=== PATIENT | female | born 1995 | race Caucasian/White ===

== ENCOUNTER 2016-12-26 20:32 | Emergency (ER) | payer OTHER ==
[~2016-12-26] VITALS: Ht 157.5 cm; Wt 59.1 kg
[2016-12-26 20:33] VITALS: BP 125/92; TEMP 97
[2016-12-26 21:14] LABS: BASO % 0.3 % (0.0-2.0); EOS % 0.5 % (0-4.0); GRAN # 6.6 (1.4-6.5); GRAN % 76.4 % (42.2-75.2); LYMPH # 1.4 (1.2-3.4); MEAN CELL VOLUME 96 fl (80.0-95.0); MEAN CORPUSCULAR HGB CONC 33 g/dl (33.0-37.0); MEAN PLATELET VOLUME 10.5 fl (7.4-10.4); MONO # 0.6 (0.1-0.6); MONO % 6.5 % (1.7-9.3); PLATELET COUNT 224 K/mm3 (130-400); REDCELL DISTRIBUTION WIDTH-CV 13.6 % (11.5-14.5); WHITE BLOOD COUNT 8.6 K/mm3 (4.8-10.8)
[2016-12-26 21:18] LABS: HEMATOCRIT 35.4 % (35.0-45.0); HEMOGLOBIN 11.8 g/dl (12.0-15.0); MEAN CORPUSCULAR HEMOGLOBIN 32 pg (26.0-32.0)
[2016-12-26 21:20] LABS: ADJUSTED CALCIUM 9.2 mg/dL (8.4-10.2); ALANINE AMINOTRANSFERASE 34 U/L (9-52); ALBUMIN 3.9 gm/dL (3.5-5.0); ALKALINE PHOSPHATASE 83 U/L (50-136); ANION GAP 11 mmol/L (7-16); BILIRUBIN,TOTAL 0.4 mg/dL (0.0-1.0); BLOOD UREA NITROGEN 12 mg/dL (7-17); CALCIUM 9.1 mg/dL (8.4-10.2); CARBON DIOXIDE 25 mmol/L (22-30); CHLORIDE 103 mmol/L (98-107); CREATININE, serum 0.53 mg/dL (0.52-1.25); GLUCOSE 59 mg/dL (74-106); POTASSIUM 3.7 mmol/L (3.4-5.0); SODIUM 139 mmol/L (137-145); TOTAL PROTEIN 6.6 gm/dL (6.4-8.2)
[2016-12-26] MEDS ORDERED: NOVOLOG 100U100 U/M1 SQ (21:20)
[2016-12-26 21:24] LABS: PH 6 (5-8); SQUAMOUS EPITHELIAL 0-2 /hpf; URINE APPEARANCE Clear; URINE BACTERIA None Seen /hpf; URINE BILIRUBIN Negative (NEGATIVE); URINE BLOOD Negative (NEGATIVE); URINE COLOR Yellow; URINE GLUCOSE 1+ (NEGATIVE); URINE KETONE Negative (NEGATIVE); URINE RBC 0-2 /hpf; URINE UROBILINOGEN Negative (NEGATIVE); URINE WBC 0-2 /hpf
[2016-12-27 00:16] VITALS: PULSE 92
== END 2016-12-27 00:16 | disposition home or self-care (01) ==
LOC: COL.ER 20:32
PROVIDERS: Family Medicine
DX: S06.0X9A Concussion with loss of consciousness of unspecified duration, initial encounter (principal); E10.649 Type 1 diabetes mellitus with hypoglycemia without coma; S01.511A Laceration without foreign body of lip, initial encounter; S01.81XA Laceration without foreign body of other part of head, initial encounter; M79.631 Pain in right forearm; Z79.4 Long term (current) use of insulin; S16.1XXA Strain of muscle, fascia and tendon at neck level, initial encounter; V48.5XXA Car driver injured in noncollision transport accident in traffic accident, initial encounter; Y92.410 Unspecified street and highway as the place of occurrence of the external cause

== ENCOUNTER 2017-01-01 14:06 | Emergency (ER) | payer OTHER ==
[~2017-01-01] VITALS: Ht 157.5 cm; Wt 56.8 kg
[~2017-01-01 14:06] MED LIST: NOVOLOG 100U100 U/M1 SQ
[2017-01-01 14:18] VITALS: TEMP 98.1
[2017-01-01] MEDS ORDERED: LANTUS100 U/ML SQ (14:54)
[2017-01-01 15:17] LABS: BASO % 0.4 % (0.0-2.0); EOS # 0.2 (0.0-0.7); EOS % 2.1 % (0-4.0); GRAN # 7.3 (1.4-6.5); HEMATOCRIT 42.6 % (35.0-45.0); HEMOGLOBIN 14.1 g/dl (12.0-15.0); LYMPH # 2.3 (1.2-3.4); MEAN CELL VOLUME 96 fl (80.0-95.0); MEAN CORPUSCULAR HEMOGLOBIN 32 pg (26.0-32.0); MEAN CORPUSCULAR HGB CONC 33 g/dl (33.0-37.0); MEAN PLATELET VOLUME 9.9 fl (7.4-10.4); MONO # 0.9 (0.1-0.6); PLATELET COUNT 331 K/mm3 (130-400); RED BLOOD COUNT 4.46 M/mm3 (4.10-5.30); REDCELL DISTRIBUTION WIDTH-CV 13.5 % (11.5-14.5); WHITE BLOOD COUNT 10.7 K/mm3 (4.8-10.8)
[2017-01-01 15:23] LABS: ADJUSTED CALCIUM 9.3 mg/dL (8.4-10.2); ALANINE AMINOTRANSFERASE 25 U/L (9-52); ALBUMIN 4.7 gm/dL (3.5-5.0); ALKALINE PHOSPHATASE 103 U/L (50-136); ANION GAP 12 mmol/L (7-16); BILIRUBIN,TOTAL 0.4 mg/dL (0.0-1.0); BLOOD UREA NITROGEN 15 mg/dL (7-17); CALCIUM 9.9 mg/dL (8.4-10.2); CARBON DIOXIDE 26 mmol/L (22-30); CHLORIDE 102 mmol/L (98-107); CREATININE, serum 0.49 mg/dL (0.52-1.25); MAGNESIUM 2.1 mg/dL (1.6-2.3); POTASSIUM 4.1 mmol/L (3.4-5.0); SODIUM 140 mmol/L (137-145); TOTAL PROTEIN 7.7 gm/dL (6.4-8.2)
[2017-01-01 15:27] LABS: GLUCOSE 21 mg/dL (74-106)
[2017-01-01 16:07] LABS: PH 7 (5-8); SQUAMOUS EPITHELIAL 0-2 /hpf; URINE APPEARANCE Clear; URINE BACTERIA None Seen /hpf; URINE BILIRUBIN Negative (NEGATIVE); URINE BLOOD Negative (NEGATIVE); URINE COLOR Straw; URINE GLUCOSE 1+ (NEGATIVE); URINE KETONE Negative (NEGATIVE); URINE RBC 0-2 /hpf; URINE UROBILINOGEN Negative (NEGATIVE); URINE WBC 0-2 /hpf
[2017-01-01 17:40] VITALS: BP 110/70; PULSE 87
== END 2017-01-01 17:40 | disposition home or self-care (01) ==
LOC: COL.ER 14:06
PROVIDERS: Emergency Medicine
DX: E10.649 Type 1 diabetes mellitus with hypoglycemia without coma (principal); F17.210 Nicotine dependence, cigarettes, uncomplicated; Z79.4 Long term (current) use of insulin
CPT/HCPCS: J7030

== ENCOUNTER 2017-03-21 13:09 | Emergency (ER) | payer SELFPAY ==
[~2017-03-21] VITALS: Ht 157.5 cm; Wt 56.8 kg
[~2017-03-21 13:09] MED LIST changes: +LANTUS100 U/ML SQ
[2017-03-21 13:14] VITALS: TEMP 98
[2017-03-21 13:50] LABS: BASO % 0.3 % (0.0-2.0); EOS % 0.3 % (0-4.0); GRAN # 9.7 (1.4-6.5); GRAN % 82.3 % (42.2-75.2); HEMATOCRIT 42.1 % (35.0-45.0); HEMOGLOBIN 13.6 g/dl (12.0-15.0); LYMPH # 1.3 (1.2-3.4); LYMPH % 11.4 % (20.0-51.0); MEAN CELL VOLUME 98 fl (80.0-95.0); MEAN CORPUSCULAR HEMOGLOBIN 32 pg (26.0-32.0); MEAN CORPUSCULAR HGB CONC 32 g/dl (33.0-37.0); MEAN PLATELET VOLUME 10.6 fl (7.4-10.4); MONO # 0.6 (0.1-0.6); MONO % 4.9 % (1.7-9.3); PLATELET COUNT 235 K/mm3 (130-400); RED BLOOD COUNT 4.28 M/mm3 (4.10-5.30); REDCELL DISTRIBUTION WIDTH-CV 13.4 % (11.5-14.5); WHITE BLOOD COUNT 11.8 K/mm3 (4.8-10.8)
[2017-03-21 14:48] LABS: PH 6 (5-8); URINE APPEARANCE Clear; URINE BACTERIA Rare /hpf; URINE BILIRUBIN Negative (NEGATIVE); URINE BLOOD Negative (NEGATIVE); URINE COLOR Yellow; URINE GLUCOSE 2+ (NEGATIVE); URINE KETONE Negative (NEGATIVE); URINE RBC 0-2 /hpf; URINE UROBILINOGEN Negative (NEGATIVE); URINE WBC 0-2 /hpf
[2017-03-21 14:53] LABS: ADJUSTED CALCIUM 9.4 mg/dL (8.4-10.2); ALBUMIN 3.4 gm/dL (3.5-5.0); BILIRUBIN,TOTAL 0.4 mg/dL (0.0-1.0); CALCIUM 8.9 mg/dL (8.4-10.2); CREATININE, serum 0.45 mg/dL (0.52-1.25); TOTAL PROTEIN 5.9 gm/dL (6.4-8.2)
[2017-03-21] MEDS ORDERED: ZOFRAN ODT4 MG PO (16:56)
[2017-03-21 17:03] VITALS: BP 130/82; PULSE 82
== END 2017-03-21 17:11 | disposition home or self-care (01) ==
LOC: COL.ER 13:09
PROVIDERS: Emergency Medicine
DX: E10.649 Type 1 diabetes mellitus with hypoglycemia without coma (principal); F17.210 Nicotine dependence, cigarettes, uncomplicated; Z98.51 Tubal ligation status
CPT/HCPCS: J7042

== ENCOUNTER 2017-04-21 03:07 | Inpatient (IN) | payer OTHER ==
[~2017-04-21] VITALS: Ht 157.5 cm; Wt 65.8 kg
[~2017-04-21 03:07] MED LIST changes: +ZOFRAN ODT4 MG PO
[2017-04-21 03:40] LABS: COLLECTION METHOD CATHETER
[2017-04-21 03:42] LABS: BASO # 0.1 (0.0-0.2); BASO % 0.7 % (0.0-2.0); EOS # 0.2 (0.0-0.7); EOS % 1.5 % (0-4.0); GRAN # 8.2 (1.4-6.5); GRAN % 70.3 % (42.2-75.2); HEMATOCRIT 39.2 % (35.0-45.0); HEMOGLOBIN 12.9 g/dl (12.0-15.0); LYMPH # 2.3 (1.2-3.4); LYMPH % 19.4 % (20.0-51.0); MEAN CELL VOLUME 96 fl (80.0-95.0); MEAN CORPUSCULAR HEMOGLOBIN 32 pg (26.0-32.0); MEAN CORPUSCULAR HGB CONC 33 g/dl (33.0-37.0); MEAN PLATELET VOLUME 9.9 fl (7.4-10.4); MONO # 0.9 (0.1-0.6); MONO % 7.7 % (1.7-9.3); PLATELET COUNT 282 K/mm3 (130-400); RED BLOOD COUNT 4.07 M/mm3 (4.10-5.30); WHITE BLOOD COUNT 11.6 K/mm3 (4.8-10.8)
[2017-04-21 03:46] LABS: MUCOUS Present /lpf; PH 6 (5-8); SQUAMOUS EPITHELIAL 0-2 /hpf; URINE APPEARANCE Clear; URINE BACTERIA None Seen /hpf; URINE BILIRUBIN Negative (NEGATIVE); URINE BLOOD 2+ (NEGATIVE); URINE COLOR Yellow; URINE GLUCOSE 3+ (NEGATIVE); URINE KETONE Negative (NEGATIVE); URINE LEUKOCYTE ESTERASE Negative (NEGATIVE); URINE PROTEIN(semi-quant) Negative (NEGATIVE); URINE UROBILINOGEN Negative (NEGATIVE); URINE WBC 0-2 /hpf
[2017-04-21 03:53] LABS: AMPHETAMINE URINE POSITIVE; BARBITURATES URINE NEGATIVE; BENZODIAZEPINES URINE NEGATIVE; BUPRENORPHINE URINE NEGATIVE; METHADONE URINE NEGATIVE; OPIATES URINE NEGATIVE; OXYCODONE URINE NEGATIVE; PHENCYCLIDINE URINE NEGATIVE; PROPOXYPHENE URINE NEGATIVE; THC CANNABINOIDS URINE POSITIVE; TRICYCLIC ANTIDEPRESS URINE NEGATIVE
[2017-04-21 03:57] LABS: ADJUSTED CALCIUM 8.9 mg/dL (8.4-10.2); ALANINE AMINOTRANSFERASE 26 U/L (9-52); ALBUMIN 4.3 gm/dL (3.5-5.0); ALKALINE PHOSPHATASE 136 U/L (50-136); ANION GAP 10 mmol/L (7-16); BILIRUBIN,TOTAL 0.6 mg/dL (0.0-1.0); BLOOD UREA NITROGEN 9 mg/dL (7-17); CALCIUM 9.1 mg/dL (8.4-10.2); CARBON DIOXIDE 26 mmol/L (22-30); CHLORIDE 104 mmol/L (98-107); CREATININE, serum 0.52 mg/dL (0.52-1.25); MAGNESIUM 1.8 mg/dL (1.6-2.3); PHOSPHOROUS 4.5 mg/dL (2.5-4.5); POTASSIUM 3.4 mmol/L (3.4-5.0); SODIUM 140 mmol/L (137-145); TOTAL PROTEIN 6.8 gm/dL (6.4-8.2)
[2017-04-21 04:00] LABS: ACETAMINOPHEN < 10 ug/mL (10-30); ALCOHOL(ethanol),MEDICAL < 10 mg/dL; GLUCOSE 38 mg/dL (74-106); SALICYLATE < 1.0 mg/dL
[2017-04-21] MEDS ORDERED: LANTUS100 U/ML SQ (05:27)
[2017-04-21] MEDS ORDERED: RITALIN 5MG5 MG/TAB PO (05:28)
[2017-04-21 10:48] VITALS: BP 98/43; BP 98/48; PULSE 94; TEMP 98
[2017-04-21 15:31] VITALS: BP 104/53; PULSE 74; TEMP 98.3
[2017-04-21 20:33] VITALS: BP 107/55; PULSE 85; TEMP 97.6
[2017-04-22 00:02] VITALS: BP 97/47; PULSE 66; TEMP 98.6
[2017-04-22 04:02] VITALS: BP 124/51; PULSE 64; TEMP 97.6
[2017-04-22 07:12] LABS: BASO # 0.1 (0.0-0.2); BASO % 0.7 % (0.0-2.0); EOS # 0.2 (0.0-0.7); GRAN # 4.5 (1.4-6.5); GRAN % 58.9 % (42.2-75.2); HEMOGLOBIN 12.4 g/dl (12.5-16.0); LYMPH # 2.3 (1.2-3.4); MEAN CELL VOLUME 98 fl (80.0-100.0); MEAN CORPUSCULAR HEMOGLOBIN 32 pg (27.0-31.0); MEAN CORPUSCULAR HGB CONC 33 g/dl (33.0-37.0); MEAN PLATELET VOLUME 10.7 fl (7.4-10.4); MONO # 0.5 (0.1-0.6); PLATELET COUNT 245 K/mm3 (130-400); RED BLOOD COUNT 3.87 M/mm3 (4.10-5.30); WHITE BLOOD COUNT 7.6 K/mm3 (4.8-10.8)
[2017-04-22 07:30] LABS: CALCIUM 8.6 mg/dL (8.4-10.2); CREATININE, serum 0.45 mg/dL (0.52-1.25); MAGNESIUM 1.7 mg/dL (1.6-2.3); POTASSIUM 4.4 mmol/L (3.4-5.0)
[2017-04-22 08:04] VITALS: BP 116/58; PULSE 66; TEMP 98
[2017-04-22 11:40] VITALS: BP 116/46; PULSE 104; TEMP 98.3
[2017-04-22 15:51] VITALS: BP 111/55; PULSE 72; TEMP 97.8
[2017-04-22 17:18] LABS: CALCIUM 9.3 mg/dL (8.4-10.2); CREATININE, serum 0.53 mg/dL (0.52-1.25); POTASSIUM 4.3 mmol/L (3.4-5.0)
[2017-04-22 20:14] VITALS: BP 115/56; PULSE 65; TEMP 98.5
[2017-04-23 07:11] LABS: CALCIUM 8.9 mg/dL (8.4-10.2); CREATININE, serum 0.52 mg/dL (0.52-1.25); MAGNESIUM 1.7 mg/dL (1.6-2.3); POTASSIUM 4.1 mmol/L (3.4-5.0)
[2017-04-23 08:40] VITALS: BP 153/73; PULSE 66; TEMP 98.3
[2017-04-23] MEDS ORDERED: LANTUS100 U/ML SQ (10:46)
[2017-04-23] MEDS ORDERED: NOVOLOG 100U100 U/M1 SQ (10:47)
[2017-04-23] MEDS ORDERED: NOVLOG SQ (10:52)
== END 2017-04-23 11:55 | disposition home or self-care (01) | DRG 638 ==
LOC: COL.ER 03:07 → MEDICAL 10:07
PROVIDERS: Emergency Medicine; Nurse Practitioner Family; Physician Assistant
DX: E10.649 Type 1 diabetes mellitus with hypoglycemia without coma (principal); E87.1 Hypo-osmolality and hyponatremia; J45.909 Unspecified asthma, uncomplicated; F17.210 Nicotine dependence, cigarettes, uncomplicated; F12.90 Cannabis use, unspecified, uncomplicated; Z79.4 Long term (current) use of insulin
CPT/HCPCS: 99232-AI; 99239; J1650; J1815; J7030; J7042

== ENCOUNTER 2017-07-10 19:14 | Emergency (ER) | payer SELFPAY ==
[~2017-07-10] VITALS: Ht 157.5 cm; Wt 61.7 kg
[~2017-07-10 19:14] MED LIST changes: +NOVLOG SQ; +RITALIN 5MG5 MG/TAB PO
[2017-07-10 19:25] VITALS: BP 145/88; PULSE 123; TEMP 99.6
[2017-07-10] MEDS ORDERED: AMOXICILLIN 8751 TAB PO (21:00)
== END 2017-07-10 22:45 | disposition home or self-care (01) ==
LOC: COL.ER 19:14
DX: S01.331A Puncture wound without foreign body of right ear, initial encounter (principal); S01.83XA Puncture wound without foreign body of other part of head, initial encounter; E10.649 Type 1 diabetes mellitus with hypoglycemia without coma; Z23 Encounter for immunization; W55.01XA Bitten by cat, initial encounter

== ENCOUNTER 2017-10-22 06:39 | Emergency (ER) | payer SELFPAY ==
[~2017-10-22] VITALS: Ht 162.6 cm; Wt 54.5 kg
[~2017-10-22 06:39] MED LIST changes: +AMOXICILLIN 8751 TAB PO
[2017-10-22 06:44] VITALS: TEMP 98
[2017-10-22 07:26] LABS: BASO # 0.1 (0.0-0.2); BASO % 0.3 % (0.0-2.0); EOS # 0.1 (0.0-0.7); EOS % 0.3 % (0-4.0); GRAN # 15.3 (1.4-6.5); GRAN % 87.2 % (42.2-75.2); HEMOGLOBIN 12.3 g/dl (12.5-16.0); LYMPH % 5.7 % (20.0-51.0); MEAN CELL VOLUME 98 fl (80.0-100.0); MEAN CORPUSCULAR HEMOGLOBIN 33 pg (27.0-31.0); MEAN CORPUSCULAR HGB CONC 33 g/dl (33.0-37.0); MEAN PLATELET VOLUME 9.4 fl (7.4-10.4); MONO % 5.6 % (1.7-9.3); PLATELET COUNT 259 K/mm3 (130-400); RED BLOOD COUNT 3.75 M/mm3 (4.10-5.30); REDCELL DISTRIBUTION WIDTH-CV 14.2 % (11.5-14.5)
[2017-10-22 07:32] LABS: HEMATOCRIT 36.9 % (37.0-47.0)
[2017-10-22 07:43] LABS: ALANINE AMINOTRANSFERASE 30 U/L (9-52); ALBUMIN 3.7 gm/dL (3.5-5.0); ALKALINE PHOSPHATASE 144 U/L (50-136); ANION GAP 11 mmol/L (7-16); AST,SGOT 29 U/L (15-37); BILIRUBIN,TOTAL 0.4 mg/dL (0.0-1.0); BLOOD UREA NITROGEN 13 mg/dL (7-17); CALCIUM 8.5 mg/dL (8.4-10.2); CARBON DIOXIDE 27 mmol/L (22-30); CHLORIDE 102 mmol/L (98-107); CREATININE, serum 0.47 mg/dL (0.52-1.25); GLUCOSE 187 mg/dL (74-106); SODIUM 139 mmol/L (137-145); TOTAL PROTEIN 6.7 gm/dL (6.4-8.2)
[2017-10-22 07:47] LABS: ACETAMINOPHEN < 10 ug/mL (10-30); ALCOHOL(ethanol),MEDICAL < 10 mg/dL
[2017-10-22 11:11] VITALS: BP 111/61; PULSE 65
== END 2017-10-22 11:12 | disposition home or self-care (01) ==
LOC: COL.ER 06:39
PROVIDERS: Emergency Medicine
DX: T38.3X1A Poisoning by insulin and oral hypoglycemic [antidiabetic] drugs, accidental (unintentional), initial encounter (principal); E10.649 Type 1 diabetes mellitus with hypoglycemia without coma; F15.90 Other stimulant use, unspecified, uncomplicated; Z79.4 Long term (current) use of insulin

== ENCOUNTER 2017-11-21 07:11 | Emergency (ER) | payer SELFPAY ==
[~2017-11-21] VITALS: Ht 157.5 cm; Wt 54.5 kg
[2017-11-21 07:19] VITALS: BP 133/80; PULSE 105; TEMP 98.6
== END 2017-11-21 09:08 | disposition home or self-care (01) ==
LOC: COL.ER 07:11
DX: S62.617A Displaced fracture of proximal phalanx of left little finger, initial encounter for closed fracture (principal); E11.9 Type 2 diabetes mellitus without complications; F17.210 Nicotine dependence, cigarettes, uncomplicated; Z79.4 Long term (current) use of insulin; W22.8XXA Striking against or struck by other objects, initial encounter; Y93.39 Activity, other involving climbing, rappelling and jumping off; Y92.410 Unspecified street and highway as the place of occurrence of the external cause
CPT/HCPCS: Q4021

== ENCOUNTER 2018-01-03 20:55 | Inpatient (IN) | payer SELFPAY ==
[~2018-01-03] VITALS: Ht 170.2 cm; Wt 59.4 kg
[2018-01-03 21:16] LABS: ARTERIAL BLD GAS O2 SATURATION 97.1 % (92-100); ARTERIAL BLD GAS TCO2 CT 2.2; ARTERIAL BLOOD GAS HCO3 1.8 meq/L (22-26)
[2018-01-03 21:17] LABS: ARTERIAL BLOOD GAS PCO2 10.1 mmHg (35-45); ARTERIAL BLOOD GAS PO2 137.9 mmHg (80-100); ARTERIAL BLOOD GAS pH 6.88 (7.35-7.45)
[2018-01-03 21:45] LABS: COLLECTION METHOD CATHETER
[2018-01-03 21:48] LABS: HEMATOCRIT 41.8 % (37.0-47.0); HEMOGLOBIN 12.4 g/dl (12.5-16.0); MEAN CELL VOLUME 112 fl (80.0-100.0); MEAN CORPUSCULAR HEMOGLOBIN 33 pg (27.0-31.0); MEAN CORPUSCULAR HGB CONC 30 g/dl (33.0-37.0); MEAN PLATELET VOLUME 10.5 fl (7.4-10.4); PLATELET COUNT 419 K/mm3 (130-400); RED BLOOD COUNT 3.74 M/mm3 (4.10-5.30); REDCELL DISTRIBUTION WIDTH-CV 14.5 % (11.5-14.5)
[2018-01-03 21:59] LABS: PH 5 (5-8); SQUAMOUS EPITHELIAL 0-2 /hpf; URINE APPEARANCE Hazy; URINE BACTERIA None Seen /hpf; URINE BILIRUBIN Negative (NEGATIVE); URINE BLOOD Negative (NEGATIVE); URINE COLOR Yellow; URINE GLUCOSE 3+ (NEGATIVE); URINE KETONE 2+ (NEGATIVE); URINE LEUKOCYTE ESTERASE Negative (NEGATIVE); URINE NITRATE Negative (NEGATIVE); URINE PROTEIN(semi-quant) 1+ (NEGATIVE); URINE RBC 0-2 /hpf; URINE UROBILINOGEN Negative (NEGATIVE)
[2018-01-03 22:02] LABS: ALANINE AMINOTRANSFERASE 49 U/L (9-52); ALBUMIN 4.1 gm/dL (3.5-5.0); AST,SGOT 54 U/L (15-37); BILIRUBIN,TOTAL 0.4 mg/dL (0.0-1.0); BLOOD UREA NITROGEN 13 mg/dL (7-17); CALCIUM 8.1 mg/dL (8.4-10.2); CARBON DIOXIDE < 5 mmol/L (22-30); CHLORIDE 102 mmol/L (98-107); CREATININE, serum 1.02 mg/dL (0.52-1.25); POTASSIUM 6.4 mmol/L (3.4-5.0); SODIUM 137 mmol/L (137-145); TOTAL PROTEIN 7.1 gm/dL (6.4-8.2)
[2018-01-03 22:04] LABS: BAND 12 % (0-10); LYMPHOCYTE 32 % (20.0-51.0); NEUTROPHILS 51 % (42.0-75.2)
[2018-01-03 22:05] LABS: ANISOCYTOSIS 1+; PLATELET ESTIMATE NORMAL (NORMAL)
[2018-01-03 22:06] LABS: TRICYCLIC ANTIDEPRESS URINE NEGATIVE
[2018-01-03 22:14] LABS: ALCOHOL(ethanol),MEDICAL < 10 mg/dL; GLUCOSE 847 mg/dL (74-106); LIPASE 41 U/L (23-300)
[2018-01-03 22:23] LABS: ALKALINE PHOSPHATASE 331 U/L (50-136)
[2018-01-03 22:58] LABS: ARTERIAL BLD GAS O2 SATURATION 97.5 % (92-100); ARTERIAL BLD GAS TCO2 CT 2.4; ARTERIAL BLOOD GAS BASE EXCESS -29.8 (-2-2); ARTERIAL BLOOD GAS PCO2 11.2 mmHg (35-45); ARTERIAL BLOOD GAS PO2 141.1 mmHg (80-100); ARTERIAL BLOOD GAS pH 6.88 (7.35-7.45)
[2018-01-03] MEDS ORDERED: NOVOLOG FLEX100 U/ML SQ (23:05)
[2018-01-03] MEDS ORDERED: PAXIL 30MG30 MG PO (23:06)
[2018-01-03] MEDS ORDERED: LEVEMIR FLEX100 U/ML SQ (23:06)
[2018-01-03 23:37] LABS: CALCIUM 7.1 mg/dL (8.4-10.2); CREATININE, serum 0.72 mg/dL (0.52-1.25); POTASSIUM 4.3 mmol/L (3.4-5.0)
[2018-01-04] VITALS (757 sets, daily range): BP systolic 116–155; BP diastolic 64–89; PULSE 72–111; TEMP 97.4–100.6; O2SAT 93–100
[2018-01-04] MEDS ORDERED: AMOXICILLIN 8751 TAB PO (00:03)
[2018-01-04 00:09] LABS: HIV 1/2 Antibodies Non-Reactive; HIV-1p24 Antigen Non-Reactive
[2018-01-04 01:29] LABS: CALCIUM 7.3 mg/dL (8.4-10.2); CREATININE, serum 0.58 mg/dL (0.52-1.25); MAGNESIUM 1.9 mg/dL (1.6-2.3); PHOSPHOROUS 2.1 mg/dL (2.5-4.5); POTASSIUM 5.1 mmol/L (3.4-5.0)
[2018-01-04 03:57] LABS: CALCIUM 7.7 mg/dL (8.4-10.2); CREATININE, serum 0.58 mg/dL (0.52-1.25); POTASSIUM 4.4 mmol/L (3.4-5.0)
[2018-01-04 05:07] LABS: ARTERIAL BLOOD GAS BASE EXCESS -18.7 (-2-2); ARTERIAL BLOOD GAS HCO3 6.5 meq/L (22-26); ARTERIAL BLOOD GAS PO2 116.1 mmHg (80-100); ARTERIAL BLOOD GAS pH 7.23 (7.35-7.45)
[2018-01-04 05:08] LABS: ARTERIAL BLOOD GAS PCO2 15.8 mmHg (35-45)
[2018-01-04 06:06] LABS: MEAN CORPUSCULAR HEMOGLOBIN 33 pg (27.0-31.0); MEAN CORPUSCULAR HGB CONC 32 g/dl (33.0-37.0); MEAN PLATELET VOLUME 10.1 fl (7.4-10.4); RED BLOOD COUNT 3.34 M/mm3 (4.10-5.30); REDCELL DISTRIBUTION WIDTH-CV 14.1 % (11.5-14.5)
[2018-01-04 06:17] LABS: HEMATOCRIT 34.8 % (37.0-47.0); MEAN CELL VOLUME 104 fl (80.0-100.0); PLATELET COUNT 267 K/mm3 (130-400)
[2018-01-04 06:23] LABS: CALCIUM 7.9 mg/dL (8.4-10.2); CREATININE, serum 0.51 mg/dL (0.52-1.25); POTASSIUM 4.3 mmol/L (3.4-5.0)
[2018-01-04 07:03] LABS: ALANINE AMINOTRANSFERASE 48 U/L (9-52); ALBUMIN 3.6 gm/dL (3.5-5.0); ALKALINE PHOSPHATASE 284 U/L (50-136); AST,SGOT 43 U/L (15-37); BILIRUBIN,TOTAL 0.3 mg/dL (0.0-1.0); TOTAL PROTEIN 6.3 gm/dL (6.4-8.2)
[2018-01-04 07:04] LABS: SALICYLATE < 1.0 mg/dL
[2018-01-04 07:23] LABS: BAND 11 % (0-10); LYMPHOCYTE 32 % (20.0-51.0); METAMYELOCYTE 1 % (0-0); NEUTROPHILS 53 % (42.0-75.2); PLATELET ESTIMATE NORMAL (NORMAL)
[2018-01-04 07:24] LABS: TOXIC GRANULATION PRESENT
[2018-01-04 07:25] LABS: BILIRUBIN,DIRECT 0.3 mg/dL (0.0-0.4)
[2018-01-04 08:04] LABS: CALCIUM 7.5 mg/dL (8.4-10.2); CREATININE, serum 0.52 mg/dL (0.52-1.25); POTASSIUM 3.5 mmol/L (3.4-5.0)
[2018-01-04 09:25] LABS: CALCIUM 7.7 mg/dL (8.4-10.2); CREATININE, serum 0.49 mg/dL (0.52-1.25); POTASSIUM 4.1 mmol/L (3.4-5.0)
[2018-01-04 11:56] LABS: CALCIUM 7.8 mg/dL (8.4-10.2); CREATININE, serum 0.46 mg/dL (0.52-1.25); POTASSIUM 3.8 mmol/L (3.4-5.0)
[2018-01-04 12:09] LABS: ARTERIAL BLD GAS O2 SATURATION 97.5 % (92-100); ARTERIAL BLOOD GAS BASE EXCESS -12.5 (-2-2); ARTERIAL BLOOD GAS HCO3 11.4 meq/L (22-26); ARTERIAL BLOOD GAS PO2 98.6 mmHg (80-100); ARTERIAL BLOOD GAS pH 7.34 (7.35-7.45)
[2018-01-04 12:10] LABS: ARTERIAL BLOOD GAS PCO2 21.5 mmHg (35-45)
[2018-01-04 12:16] LABS: CREATINE KINASE 35 U/L (30-135)
[2018-01-04 12:25] LABS: TROPONIN-I < 0.012 ng/mL (0.000-0.034)
[2018-01-04 13:46] LABS: CALCIUM 7.5 mg/dL (8.4-10.2); CREATININE, serum 0.43 mg/dL (0.52-1.25); POTASSIUM 3.6 mmol/L (3.4-5.0)
[2018-01-04 15:17] LABS: HEPATITIS B SURFACE ANTIGEN Negative (()); HEPATITIS C VIRUS ANTIBODY Negative (())
[2018-01-04 15:35] LABS: CALCIUM 7.7 mg/dL (8.4-10.2); CREATININE, serum 0.42 mg/dL (0.52-1.25); POTASSIUM 3.5 mmol/L (3.4-5.0)
[2018-01-04 17:22] LABS: CALCIUM 8.1 mg/dL (8.4-10.2); CREATININE, serum 0.38 mg/dL (0.52-1.25); POTASSIUM 3.8 mmol/L (3.4-5.0)
[2018-01-04 19:23] LABS: CALCIUM 7.8 mg/dL (8.4-10.2); CREATININE, serum 0.38 mg/dL (0.52-1.25); POTASSIUM 3.6 mmol/L (3.4-5.0)
[2018-01-04 21:10] LABS: CALCIUM 7.9 mg/dL (8.4-10.2); CREATININE, serum 0.38 mg/dL (0.52-1.25); POTASSIUM 3.3 mmol/L (3.4-5.0)
[2018-01-04 23:16] LABS: CREATININE, serum 0.4 mg/dL (0.52-1.25); POTASSIUM 3.1 mmol/L (3.4-5.0)
[2018-01-04 23:47] LABS: MAGNESIUM 1.7 mg/dL (1.6-2.3); PHOSPHOROUS 0.8 mg/dL (2.5-4.5)
[2018-01-05] VITALS (699 sets, daily range): BP systolic 128–148; BP diastolic 69–97; PULSE 61–110; TEMP 98–99.3; O2SAT 87–100
[2018-01-05 01:26] LABS: CREATININE, serum 0.39 mg/dL (0.52-1.25); POTASSIUM 3.1 mmol/L (3.4-5.0)
[2018-01-05 03:12] LABS: ANION GAP 14 mmol/L (7-16); CALCIUM 7.9 mg/dL (8.4-10.2); CARBON DIOXIDE 15 mmol/L (22-30); CHLORIDE 113 mmol/L (98-107); CREATININE, serum 0.38 mg/dL (0.52-1.25); GLUCOSE 124 mg/dL (74-106); POTASSIUM 3.6 mmol/L (3.4-5.0); SODIUM 142 mmol/L (137-145)
[2018-01-05 03:22] LABS: BLOOD UREA NITROGEN < 2 mg/dL (7-17)
[2018-01-05 05:42] LABS: BASO % 0.2 % (0.0-2.0); EOS # 0.1 (0.0-0.7); EOS % 1.1 % (0-4.0); GRAN # 5.2 (1.4-6.5); GRAN % 58.8 % (42.2-75.2); LYMPH # 2.4 (1.2-3.4); LYMPH % 26.6 % (20.0-51.0); MEAN CELL VOLUME 100 fl (80.0-100.0); MEAN CORPUSCULAR HGB CONC 33 g/dl (33.0-37.0); MEAN PLATELET VOLUME 9.7 fl (7.4-10.4); MONO # 1.1 (0.1-0.6); MONO % 12.7 % (1.7-9.3); PLATELET COUNT 190 K/mm3 (130-400); RED BLOOD COUNT 3.01 M/mm3 (4.10-5.30); REDCELL DISTRIBUTION WIDTH-CV 14.7 % (11.5-14.5)
[2018-01-05 05:51] LABS: HEMATOCRIT 30.2 % (37.0-47.0); HEMOGLOBIN 9.9 g/dl (12.5-16.0); MEAN CORPUSCULAR HEMOGLOBIN 33 pg (27.0-31.0)
[2018-01-05 05:52] LABS: ALBUMIN 2.8 gm/dL (3.5-5.0); BILIRUBIN,TOTAL 0.1 mg/dL (0.0-1.0); CALCIUM 7.6 mg/dL (8.4-10.2); CREATININE, serum 0.38 mg/dL (0.52-1.25); MAGNESIUM 2.7 mg/dL (1.6-2.3); PHOSPHOROUS 2.5 mg/dL (2.5-4.5); POTASSIUM 3.7 mmol/L (3.4-5.0); TOTAL PROTEIN 5.4 gm/dL (6.4-8.2)
[2018-01-05 07:51] LABS: ANION GAP 9 mmol/L (7-16); CALCIUM 7.1 mg/dL (8.4-10.2); CARBON DIOXIDE 18 mmol/L (22-30); CHLORIDE 112 mmol/L (98-107); CREATININE, serum 0.31 mg/dL (0.52-1.25); GLUCOSE 95 mg/dL (74-106); POTASSIUM 4.1 mmol/L (3.4-5.0); SODIUM 139 mmol/L (137-145)
[2018-01-05 07:54] LABS: BLOOD UREA NITROGEN < 2 mg/dL (7-17)
[2018-01-05 09:33] LABS: ANION GAP 12 mmol/L (7-16); BLOOD UREA NITROGEN < 2 mg/dL (7-17); CALCIUM 6.7 mg/dL (8.4-10.2); CARBON DIOXIDE 15 mmol/L (22-30); CHLORIDE 111 mmol/L (98-107); GLUCOSE 182 mg/dL (74-106); POTASSIUM 3.2 mmol/L (3.4-5.0); SODIUM 138 mmol/L (137-145)
[2018-01-05 11:26] LABS: ANION GAP 12 mmol/L (7-16); CALCIUM 6.9 mg/dL (8.4-10.2); CARBON DIOXIDE 16 mmol/L (22-30); CHLORIDE 111 mmol/L (98-107); CREATININE, serum 0.29 mg/dL (0.52-1.25); GLUCOSE 126 mg/dL (74-106); POTASSIUM 3.8 mmol/L (3.4-5.0); SODIUM 138 mmol/L (137-145)
[2018-01-05 11:35] LABS: BLOOD UREA NITROGEN < 2 mg/dL (7-17)
[2018-01-05 13:35] LABS: ANION GAP 13 mmol/L (7-16); CALCIUM 6.8 mg/dL (8.4-10.2); CARBON DIOXIDE 15 mmol/L (22-30); CHLORIDE 110 mmol/L (98-107); GLUCOSE 133 mg/dL (74-106); POTASSIUM 3.8 mmol/L (3.4-5.0); SODIUM 138 mmol/L (137-145)
[2018-01-05 13:44] LABS: BLOOD UREA NITROGEN < 2 mg/dL (7-17)
[2018-01-05 15:26] LABS: ANION GAP 13 mmol/L (7-16); CARBON DIOXIDE 16 mmol/L (22-30); CHLORIDE 109 mmol/L (98-107); GLUCOSE 146 mg/dL (74-106); POTASSIUM 4.1 mmol/L (3.4-5.0); SODIUM 137 mmol/L (137-145)
[2018-01-05 15:29] LABS: BLOOD UREA NITROGEN < 2 mg/dL (7-17)
[2018-01-07 14:35] LABS: ACETONE XXX
== END 2018-01-05 20:16 | disposition short-term general hospital (02) | DRG 637 ==
LOC: COL.ER 20:55 → ICU 23:39
PROVIDERS: Emergency Medicine; Family Medicine; Internal Medicine; Internal Medicine Pulmonary Disease; Nurse Practitioner Family
PROC: 02HV33Z Insertion of Infusion Device into Superior Vena Cava, Percutaneous Approach (ICD-10-PCS; principal; 2018-01-04)
DX: E10.10 Type 1 diabetes mellitus with ketoacidosis without coma (principal); G93.41 Metabolic encephalopathy; F15.10 Other stimulant abuse, uncomplicated; F12.10 Cannabis abuse, uncomplicated; E87.5 Hyperkalemia; E83.39 Other disorders of phosphorus metabolism; J45.909 Unspecified asthma, uncomplicated; D64.9 Anemia, unspecified; D72.829 Elevated white blood cell count, unspecified; R50.9 Fever, unspecified; F17.210 Nicotine dependence, cigarettes, uncomplicated; Z79.4 Long term (current) use of insulin
CPT/HCPCS: 99223-AI; 99239; J0610; J0696; J1650; J1815; J1956; J2405; J2550; J3411; J3475; J3480; J7030; J7050; Q9967

== ENCOUNTER 2018-02-16 18:08 | Inpatient (IN) | payer SELFPAY ==
[~2018-02-16] VITALS: Ht 157.5 cm; Wt 62.0 kg
[~2018-02-16 18:08] MED LIST changes: +LEVEMIR FLEX100 U/ML SQ; +NOVOLOG FLEX100 U/ML SQ; +PAXIL 30MG30 MG PO
[2018-02-16 18:44] LABS: BASO # 0.1 (0.0-0.2); BASO % 0.9 % (0.0-2.0); EOS # 0.1 (0.0-0.7); EOS % 1.2 % (0-4.0); GRAN % 69.5 % (42.2-75.2); HEMATOCRIT 40.5 % (37.0-47.0); HEMOGLOBIN 12.6 g/dl (12.5-16.0); LYMPH % 22.9 % (20.0-51.0); MEAN CELL VOLUME 98 fl (80.0-100.0); MEAN CORPUSCULAR HEMOGLOBIN 30 pg (27.0-31.0); MEAN CORPUSCULAR HGB CONC 31 g/dl (33.0-37.0); MEAN PLATELET VOLUME 10.4 fl (7.4-10.4); MONO # 0.5 (0.1-0.6); MONO % 5.2 % (1.7-9.3); PLATELET COUNT 293 K/mm3 (130-400); RED BLOOD COUNT 4.15 M/mm3 (4.10-5.30); REDCELL DISTRIBUTION WIDTH-CV 13.9 % (11.5-14.5)
[2018-02-16 18:50] LABS: ACETONE,SERUM MODERATE; ALANINE AMINOTRANSFERASE 37 U/L (9-52); ALBUMIN 4.6 gm/dL (3.5-5.0); ALKALINE PHOSPHATASE 187 U/L (50-136); ANION GAP 27 mmol/L (7-16); AST,SGOT 36 U/L (15-37); BILIRUBIN,TOTAL 0.8 mg/dL (0.0-1.0); BLOOD UREA NITROGEN 8 mg/dL (7-17); CALCIUM 8.9 mg/dL (8.4-10.2); CHLORIDE 97 mmol/L (98-107); CREATININE, serum 0.69 mg/dL (0.52-1.25); LIPASE 33 U/L (23-300); MAGNESIUM 1.7 mg/dL (1.6-2.3); POTASSIUM 4.6 mmol/L (3.4-5.0); SODIUM 131 mmol/L (137-145); TOTAL PROTEIN 7.6 gm/dL (6.4-8.2)
[2018-02-16 18:52] LABS: COLLECTION METHOD CLEAN CATCH
[2018-02-16 18:53] LABS: ALCOHOL(ethanol),MEDICAL < 10 mg/dL
[2018-02-16 18:54] LABS: CARBON DIOXIDE 7 mmol/L (22-30); GLUCOSE 576 mg/dL (74-106)
[2018-02-16 18:58] LABS: MUCOUS Present /lpf; PH 5 (5-8); SQUAMOUS EPITHELIAL 0-2 /hpf; URINE APPEARANCE Hazy; URINE BACTERIA Rare /hpf; URINE BILIRUBIN Negative (NEGATIVE); URINE BLOOD Negative (NEGATIVE); URINE COLOR Straw; URINE GLUCOSE 3+ (NEGATIVE); URINE KETONE 2+ (NEGATIVE); URINE LEUKOCYTE ESTERASE Negative (NEGATIVE); URINE NITRATE Negative (NEGATIVE); URINE PROTEIN(semi-quant) 1+ (NEGATIVE); URINE RBC 0-2 /hpf; URINE UROBILINOGEN Negative (NEGATIVE)
[2018-02-16 19:07] LABS: HCG,QUANTITATIVE < 2 mIU/mL (0-5)
[2018-02-16 19:08] LABS: TRICYCLIC ANTIDEPRESS URINE NEGATIVE
[2018-02-16 20:45] VITALS: BP 120/83; PULSE 92; TEMP 98.2
[2018-02-16 23:57] LABS: CREATININE, serum 0.54 mg/dL (0.52-1.25); POTASSIUM 4.4 mmol/L (3.4-5.0)
[2018-02-17 00:11] VITALS: BP 114/74; PULSE 103; TEMP 98
[2018-02-17 00:35] VITALS: BP 120/83; PULSE 92; TEMP 98.2
[2018-02-17 01:48] LABS: CALCIUM 8.1 mg/dL (8.4-10.2); CREATININE, serum 0.51 mg/dL (0.52-1.25)
[2018-02-17 04:09] LABS: CALCIUM 7.9 mg/dL (8.4-10.2); CREATININE, serum 0.42 mg/dL (0.52-1.25); POTASSIUM 4.7 mmol/L (3.4-5.0)
[2018-02-17 04:17] VITALS: BP 90/51; PULSE 85; TEMP 98.9
[2018-02-17 06:11] LABS: CALCIUM 7.8 mg/dL (8.4-10.2); CREATININE, serum 0.43 mg/dL (0.52-1.25)
[2018-02-17 07:37] LABS: CREATININE, serum 0.4 mg/dL (0.52-1.25); POTASSIUM 3.8 mmol/L (3.4-5.0)
[2018-02-17 08:30] VITALS: BP 93/57; PULSE 77; TEMP 97.9
[2018-02-17 10:15] LABS: ANION GAP 10 mmol/L (7-16); CALCIUM 8.2 mg/dL (8.4-10.2); CARBON DIOXIDE 16 mmol/L (22-30); CHLORIDE 110 mmol/L (98-107); CREATININE, serum 0.39 mg/dL (0.52-1.25); GLUCOSE 117 mg/dL (74-106); POTASSIUM 3.7 mmol/L (3.4-5.0); SODIUM 135 mmol/L (137-145)
[2018-02-17 10:26] LABS: BLOOD UREA NITROGEN < 2 mg/dL (7-17)
[2018-02-17 12:00] VITALS: BP 109/81; PULSE 73; TEMP 97.3
[2018-02-17 14:33] LABS: ANION GAP 14 mmol/L (7-16); CALCIUM 8.8 mg/dL (8.4-10.2); CARBON DIOXIDE 17 mmol/L (22-30); CHLORIDE 107 mmol/L (98-107); CREATININE, serum 0.46 mg/dL (0.52-1.25); GLUCOSE 229 mg/dL (74-106); POTASSIUM 3.9 mmol/L (3.4-5.0); SODIUM 137 mmol/L (137-145)
[2018-02-17 14:34] LABS: BLOOD UREA NITROGEN < 2 mg/dL (7-17)
[2018-02-17 16:08] VITALS: BP 99/58; PULSE 99; TEMP 97.6
[2018-02-17] MEDS ORDERED: LANTUS SOLOS100 U/ML SQ (16:23)
[2018-03-07] MEDS ORDERED: CEPHALEXIN500 M1 PO (13:27)
== END 2018-02-17 17:53 | disposition home or self-care (01) | DRG 639 ==
LOC: COL.ER 18:08 → ICU 18:31
PROVIDERS: Emergency Medicine; Internal Medicine; Nurse Practitioner
DX: E10.10 Type 1 diabetes mellitus with ketoacidosis without coma (principal); Z79.4 Long term (current) use of insulin; J45.909 Unspecified asthma, uncomplicated; F17.210 Nicotine dependence, cigarettes, uncomplicated; F15.10 Other stimulant abuse, uncomplicated
CPT/HCPCS: J1644; J1815; J2060; J2405; J3475; J7030; J7070

== ENCOUNTER 2018-02-23 03:47 | Inpatient (IN) | payer SELFPAY ==
[2018-02-23] VITALS (542 sets, daily range): BP systolic 98–111; BP diastolic 59–67; PULSE 77–93; TEMP 98.1–98.8; O2SAT 98–100
[~2018-02-23] VITALS: Ht 157.5 cm; Wt 63.1 kg
[~2018-02-23 03:47] MED LIST changes: +LANTUS SOLOS100 U/ML SQ
[2018-02-23 04:01] LABS: BASO # 0.1 (0.0-0.2); BASO % 0.6 % (0.0-2.0); EOS # 0.1 (0.0-0.7); EOS % 0.4 % (0-4.0); GRAN # 14.3 (1.4-6.5); GRAN % 79.8 % (42.2-75.2); HEMATOCRIT 43.5 % (37.0-47.0); HEMOGLOBIN 13.3 g/dl (12.5-16.0); LYMPH # 2.3 (1.2-3.4); MEAN CELL VOLUME 102 fl (80.0-100.0); MEAN CORPUSCULAR HEMOGLOBIN 31 pg (27.0-31.0); MEAN CORPUSCULAR HGB CONC 31 g/dl (33.0-37.0); MEAN PLATELET VOLUME 10.2 fl (7.4-10.4); MONO # 0.9 (0.1-0.6); MONO % 4.8 % (1.7-9.3); PLATELET COUNT 408 K/mm3 (130-400); RED BLOOD COUNT 4.28 M/mm3 (4.10-5.30)
[2018-02-23 04:12] LABS: ALANINE AMINOTRANSFERASE 37 U/L (9-52); ALBUMIN 4.6 gm/dL (3.5-5.0); ALKALINE PHOSPHATASE 222 U/L (50-136); AST,SGOT 26 U/L (15-37); BILIRUBIN,TOTAL 0.4 mg/dL (0.0-1.0); BLOOD UREA NITROGEN 10 mg/dL (7-17); CALCIUM 8.9 mg/dL (8.4-10.2); CHLORIDE 103 mmol/L (98-107); CREATININE, serum 0.68 mg/dL (0.52-1.25); MAGNESIUM 2.1 mg/dL (1.6-2.3); PHOSPHOROUS 4.2 mg/dL (2.5-4.5); POTASSIUM 5.5 mmol/L (3.4-5.0); SODIUM 133 mmol/L (137-145); TOTAL PROTEIN 7.8 gm/dL (6.4-8.2)
[2018-02-23 04:13] LABS: GLUCOSE 551 mg/dL (74-106)
[2018-02-23 04:16] LABS: CARBON DIOXIDE < 5 mmol/L (22-30)
[2018-02-23 04:19] LABS: ACETONE,SERUM LARGE
[2018-02-23 04:25] LABS: COLLECTION METHOD CLEAN CATCH
[2018-02-23 04:33] LABS: MUCOUS Present /lpf; PH 5 (5-8); SQUAMOUS EPITHELIAL 0-2 /hpf; URINE APPEARANCE Clear; URINE BACTERIA None Seen /hpf; URINE BILIRUBIN Negative (NEGATIVE); URINE BLOOD Negative (NEGATIVE); URINE COLOR Straw; URINE GLUCOSE 3+ (NEGATIVE); URINE KETONE 2+ (NEGATIVE); URINE LEUKOCYTE ESTERASE Negative (NEGATIVE); URINE NITRATE Negative (NEGATIVE); URINE PROTEIN(semi-quant) 1+ (NEGATIVE); URINE RBC None Seen /hpf; URINE UROBILINOGEN Negative (NEGATIVE)
[2018-02-23 04:35] LABS: ANION GAP 30 mmol/L (7-16)
[2018-02-23 04:40] LABS: TRICYCLIC ANTIDEPRESS URINE NEGATIVE
[2018-02-23 07:47] LABS: CALCIUM 7.9 mg/dL (8.4-10.2); CREATININE, serum 0.58 mg/dL (0.52-1.25); POTASSIUM 5.2 mmol/L (3.4-5.0)
[2018-02-23] MEDS ORDERED: LEVEMIR FLEX100 U/ML SQ (08:56)
[2018-02-23 09:40] LABS: CALCIUM 7.7 mg/dL (8.4-10.2); CREATININE, serum 0.5 mg/dL (0.52-1.25); POTASSIUM 4.8 mmol/L (3.4-5.0)
[2018-02-23 11:14] LABS: CALCIUM 7.9 mg/dL (8.4-10.2); CREATININE, serum 0.51 mg/dL (0.52-1.25); POTASSIUM 4.5 mmol/L (3.4-5.0)
[2018-02-23 13:05] LABS: CREATININE, serum 0.49 mg/dL (0.52-1.25); POTASSIUM 4.2 mmol/L (3.4-5.0)
[2018-02-23 15:16] LABS: CALCIUM 8.1 mg/dL (8.4-10.2); CREATININE, serum 0.51 mg/dL (0.52-1.25); POTASSIUM 3.8 mmol/L (3.4-5.0)
[2018-02-23 17:30] LABS: CREATININE, serum 0.46 mg/dL (0.52-1.25); POTASSIUM 3.7 mmol/L (3.4-5.0)
[2018-02-23 21:30] LABS: CALCIUM 8.1 mg/dL (8.4-10.2); CREATININE, serum 0.44 mg/dL (0.52-1.25); POTASSIUM 3.5 mmol/L (3.4-5.0)
[2018-02-24] VITALS (539 sets, daily range): BP systolic 98–151; BP diastolic 61–93; PULSE 71–84; TEMP 97.6–98.5; O2SAT 84–100
[2018-02-24 01:43] LABS: ANION GAP 11 mmol/L (7-16); CALCIUM 8.3 mg/dL (8.4-10.2); CHLORIDE 111 mmol/L (98-107); CREATININE, serum 0.43 mg/dL (0.52-1.25); GLUCOSE 147 mg/dL (74-106); POTASSIUM 3.4 mmol/L (3.4-5.0); SODIUM 136 mmol/L (137-145)
[2018-02-24 01:53] LABS: BLOOD UREA NITROGEN < 2 mg/dL (7-17)
[2018-02-24 01:54] LABS: CARBON DIOXIDE 14 mmol/L (22-30)
[2018-02-24 05:42] LABS: BASO % 0.1 % (0.0-2.0); EOS # 0.2 (0.0-0.7); EOS % 2.5 % (0-4.0); GRAN # 3.3 (1.4-6.5); LYMPH # 3.1 (1.2-3.4); LYMPH % 42.3 % (20.0-51.0); MEAN CORPUSCULAR HGB CONC 32 g/dl (33.0-37.0); MEAN PLATELET VOLUME 9.7 fl (7.4-10.4); MONO # 0.7 (0.1-0.6); MONO % 9.7 % (1.7-9.3); RED BLOOD COUNT 3.32 M/mm3 (4.10-5.30); REDCELL DISTRIBUTION WIDTH-CV 13.9 % (11.5-14.5)
[2018-02-24 06:04] LABS: ANION GAP 9 mmol/L (7-16); CARBON DIOXIDE 17 mmol/L (22-30); CHLORIDE 113 mmol/L (98-107); CREATININE, serum 0.39 mg/dL (0.52-1.25); POTASSIUM 3.3 mmol/L (3.4-5.0); SODIUM 139 mmol/L (137-145)
[2018-02-24 06:05] LABS: MEAN CELL VOLUME 96 fl (80.0-100.0); MEAN CORPUSCULAR HEMOGLOBIN 31 pg (27.0-31.0)
[2018-02-24 06:06] LABS: HEMOGLOBIN 10.2 g/dl (12.5-16.0); PLATELET COUNT 241 K/mm3 (130-400)
[2018-02-24 06:13] LABS: BLOOD UREA NITROGEN < 2 mg/dL (7-17)
[2018-02-24 06:19] LABS: GLUCOSE 117 mg/dL (74-106)
[2018-02-24 09:26] LABS: ANION GAP 10 mmol/L (7-16); CALCIUM 8.2 mg/dL (8.4-10.2); CARBON DIOXIDE 16 mmol/L (22-30); CHLORIDE 111 mmol/L (98-107); CREATININE, serum 0.39 mg/dL (0.52-1.25); GLUCOSE 137 mg/dL (74-106); POTASSIUM 3.6 mmol/L (3.4-5.0); SODIUM 138 mmol/L (137-145)
[2018-02-24 09:29] LABS: BLOOD UREA NITROGEN < 2 mg/dL (7-17)
[2018-02-24 15:35] LABS: ANION GAP 10 mmol/L (7-16); CALCIUM 8.5 mg/dL (8.4-10.2); CARBON DIOXIDE 19 mmol/L (22-30); CHLORIDE 108 mmol/L (98-107); GLUCOSE 176 mg/dL (74-106); POTASSIUM 3.8 mmol/L (3.4-5.0); SODIUM 137 mmol/L (137-145)
[2018-02-24 15:36] LABS: BLOOD UREA NITROGEN < 2 mg/dL (7-17)
[2018-02-24] MEDS ORDERED: VALTREX1 GM PO (16:37)
[2018-02-24] MEDS ORDERED: ZOLOFT 100MG100 MG PO (18:17)
[2018-02-24] MEDS ORDERED: TESSALON PERLE200 MG PO (18:18)
[2018-02-25 01:16] VITALS: BP 129/68; PULSE 63; TEMP 98.7
[2018-02-25 05:10] VITALS: BP 118/75; PULSE 88; TEMP 98.5
[2018-02-25 06:13] LABS: CALCIUM 8.1 mg/dL (8.4-10.2); CREATININE, serum 0.36 mg/dL (0.52-1.25)
[2018-02-25 06:26] LABS: POTASSIUM 2.9 mmol/L (3.4-5.0)
[2018-02-25 07:29] VITALS: BP 114/69; PULSE 63; TEMP 97.9
[2018-02-25 11:16] VITALS: BP 94/57; PULSE 81; TEMP 98.5
== END 2018-02-25 14:55 | disposition home or self-care (01) | DRG 639 ==
LOC: COL.ER 03:47 → ICU 04:28 → MEDICAL 02-24 18:14
PROVIDERS: Emergency Medicine; Internal Medicine; Nurse Practitioner Family
PROC: 02HV33Z Insertion of Infusion Device into Superior Vena Cava, Percutaneous Approach (ICD-10-PCS; principal; 2018-02-23)
DX: E10.10 Type 1 diabetes mellitus with ketoacidosis without coma (principal); Z79.4 Long term (current) use of insulin; Z91.14 Patient's other noncompliance with medication regimen; J45.909 Unspecified asthma, uncomplicated; F17.210 Nicotine dependence, cigarettes, uncomplicated; E87.5 Hyperkalemia; E87.6 Hypokalemia
CPT/HCPCS: 99232-AI; 99239; C1751; C1894; C9113; J1650; J1815; J2405; J3475; J3480; J7030

== ENCOUNTER 2018-03-05 14:22 | Emergency (ER) | payer SELFPAY ==
[~2018-03-05] VITALS: Ht 157.5 cm; Wt 63.1 kg
[~2018-03-05 14:22] MED LIST changes: +TESSALON PERLE200 MG PO; +VALTREX1 GM PO; +ZOLOFT 100MG100 MG PO
[2018-03-05 14:24] VITALS: TEMP 98.3
[2018-03-05 14:50] LABS: COLLECTION METHOD CLEAN CATCH
[2018-03-05 15:00] LABS: MUCOUS Present /lpf; PH 5 (5-8); URINE APPEARANCE Hazy; URINE BACTERIA Rare /hpf; URINE BILIRUBIN Negative (NEGATIVE); URINE BLOOD Negative (NEGATIVE); URINE COLOR Yellow; URINE GLUCOSE 3+ (NEGATIVE); URINE KETONE 2+ (NEGATIVE); URINE LEUKOCYTE ESTERASE Trace (NEGATIVE); URINE NITRATE Negative (NEGATIVE); URINE PROTEIN(semi-quant) 1+ (NEGATIVE); URINE UROBILINOGEN Negative (NEGATIVE)
[2018-03-05 15:04] LABS: BASO # 0.1 (0.0-0.2); BASO % 0.6 % (0.0-2.0); EOS # 0.1 (0.0-0.7); EOS % 0.8 % (0-4.0); GRAN # 7.5 (1.4-6.5); GRAN % 68.8 % (42.2-75.2); HEMATOCRIT 34.8 % (37.0-47.0); HEMOGLOBIN 11.1 g/dl (12.5-16.0); LYMPH # 2.3 (1.2-3.4); LYMPH % 21.4 % (20.0-51.0); MEAN CELL VOLUME 95 fl (80.0-100.0); MEAN CORPUSCULAR HEMOGLOBIN 30 pg (27.0-31.0); MEAN CORPUSCULAR HGB CONC 32 g/dl (33.0-37.0); MEAN PLATELET VOLUME 9.8 fl (7.4-10.4); MONO # 0.9 (0.1-0.6); MONO % 8.1 % (1.7-9.3); PLATELET COUNT 286 K/mm3 (130-400); RED BLOOD COUNT 3.67 M/mm3 (4.10-5.30); REDCELL DISTRIBUTION WIDTH-CV 14.6 % (11.5-14.5)
[2018-03-05 15:14] LABS: ALANINE AMINOTRANSFERASE 23 U/L (9-52); ALBUMIN 3.8 gm/dL (3.5-5.0); ALKALINE PHOSPHATASE 184 U/L (50-136); ANION GAP 9 mmol/L (7-16); AST,SGOT 22 U/L (15-37); BILIRUBIN,TOTAL 0.2 mg/dL (0.0-1.0); BLOOD UREA NITROGEN 6 mg/dL (7-17); CALCIUM 9.6 mg/dL (8.4-10.2); CARBON DIOXIDE 27 mmol/L (22-30); CHLORIDE 100 mmol/L (98-107); GLUCOSE 53 mg/dL (74-106); LIPASE 17 U/L (23-300); POTASSIUM 3.4 mmol/L (3.4-5.0); SODIUM 137 mmol/L (137-145)
[2018-03-05] MEDS ORDERED: BACTRIM DS 8001 TAB PO (15:38)
[2018-03-05 15:42] LABS: ACETONE,SERUM NEGATIVE
[2018-03-05 16:46] VITALS: BP 115/71; PULSE 98
[2018-03-07] MEDS ORDERED: CEPHALEXIN500 M1 PO (13:27)
== END 2018-03-05 17:06 | disposition home or self-care (01) ==
LOC: COL.ER 14:22
PROVIDERS: Emergency Medicine
DX: E11.10 Type 2 diabetes mellitus with ketoacidosis without coma (principal); E11.649 Type 2 diabetes mellitus with hypoglycemia without coma; L03.317 Cellulitis of buttock; Z79.4 Long term (current) use of insulin
CPT/HCPCS: J0696; J7030

== ENCOUNTER 2018-09-09 00:36 | Inpatient (IN) | payer OTHER ==
[~2018-09-09] VITALS: Ht 157.5 cm; Wt 77.5 kg
[2018-09-09] VITALS (8 sets, daily range): BP systolic 98–138; BP diastolic 52–77; PULSE 72–87; TEMP 97.8–98.6
[~2018-09-09 00:36] MED LIST changes: +ALBUTEROL0.09 MG/A1 IH; +ATIVAN 0.50.5 MG/TAB PO; +BACTRIM DS 8001 TAB PO; +CEPHALEXIN500 M1 PO; +HUMALOG100 U/ML; +IBU800 M1 PO; +LAN-O-SOOTHE1 OIN TP; +LANTUS100 U/ML; +LANTUS100 U/ML SC; +LEVAQUIN 750MG750 M1 PO; +NOVOLOG 100U100 U/M1; +NOVOLOG 100U100 U/M1 SC; +PERCOCET 325 MG1 TA2 PO; +PRENATAL VITAMI1 TAB PO; +PROZAC 10MG10 MG PO; +SENOKOT8.6 MG PO; +ULTRAM 50MG TAB50 MG PO; +VISTARIL 2525 MG/CAP PO; +ZOFRAN8 MG PO
--- NOTE | 2018-09-09 01:06 | NUR ---
Arrived to the unit via EMS; able to self transfer to icu bed. Alert and oriented and cooperaive with staff. Assessment completed. Hospitalist notified of patient's arrival. Patient wanted mother to be emergency contact. Has been living with Ex- stated to me that she does not want him to know specifics about her stay such as lab values. Stated we can tranfer calls from him to her room and we can give general info such as where she is and if she is "stable".
[2018-09-09 01:44] LABS: BASO % 0.3 % (0.0-2.0); EOS # 0.1 (0.0-0.7); EOS % 0.6 % (0-4.0); GRAN # 6.2 (1.4-6.5); GRAN % 70.8 % (42.2-75.2); HEMATOCRIT 38.6 % (37.0-47.0); HEMOGLOBIN 12.9 g/dl (12.5-16.0); LYMPH # 1.8 (1.2-3.4); LYMPH % 20.6 % (20.0-51.0); MEAN CELL VOLUME 91 fl (80.0-100.0); MEAN CORPUSCULAR HEMOGLOBIN 30 pg (27.0-31.0); MEAN CORPUSCULAR HGB CONC 33 g/dl (33.0-37.0); MEAN PLATELET VOLUME 9.9 fl (7.4-10.4); MONO # 0.6 (0.1-0.6); MONO % 7.2 % (1.7-9.3); PLATELET COUNT 270 K/mm3 (130-400); RED BLOOD COUNT 4.25 M/mm3 (4.10-5.30); REDCELL DISTRIBUTION WIDTH-CV 13.2 % (11.5-14.5)
[2018-09-09 01:54] LABS: CALCIUM 9.3 mg/dL (8.4-10.2); CREATININE, serum 0.52 (0.52-1.25); POTASSIUM 4.5 mmol/L (3.4-5.0)
[2018-09-09] MEDS ORDERED: LEVEMIR FLEX100 U/ML SQ (01:54)
[2018-09-09] MEDS ORDERED: ZOLOFT 100MG100 MG PO (01:55)
[2018-09-09] MEDS ORDERED: RITALIN 20M20 MG/TAB PO (01:56)
[2018-09-09] MEDS ORDERED: ZOVIRAX400 MG PO (02:25)
[2018-09-09] MEDS ORDERED: PROAIR HFA0.09 MG/AC IH (02:26)
--- NOTE | 2018-09-09 04:03 | NUR ---
Blood glucose 60. Provided with orange juice and crackers. Will continue to monitor accu checks hourly.
--- NOTE | 2018-09-09 07:05 | NUR ---
Report given to RADHA Chahal. Patient care transfered.
--- NOTE | 2018-09-09 07:40 | NUR ---
Pt AAOx4, complaining of stomach ache that increases in discomfort with palpation - no certain quadrant observed to be more sensitive based on subjective assessment. Call light within reach - educated to call before attempting to get out of bed to prevent a fall.
--- NOTE | 2018-09-09 10:20 | NUR ---
EMILY and SW student attended clinical rounding and met with patient to discuss discharge planning. Patient is currently living with her ex and 5 year old daughter. Patient goes to [facility] and sees a PER DIEM REGISTERED NURSE named Michelle for her PCP and obtains her medications there as well. 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 She is already going to groups and is starting individual therapy at the [facility] in [place] and her flight deck officer is aware of patients use. Patient does not currently have any interest in inpatient treatment but her therapist will help her get inpatient if she uses 2 more times. Patient said finding out she is solidifies that she does not want to use again. She does not want her ex to obtain medical information as she wants to tell him she relapsed and that she is . She reports the baby would be his. Patient does not have a DPOA in place and is not interested in filling one out. EMILY informed her that if she did not fill one out her parents would be who would make her decisions if she was unable to. She is fine with that and reports she would like her mother called, Anne Marie Peña [phone]. EMILY informed her that if she changes her mind and would like inpatient treatment SW will assist in setting it up as well as completing a DPOA. EMILY will continue to follow.
--- NOTE | 2018-09-09 15:05 | NUR ---
Latha redmond Oceen met with patient and completed medicaid application.
--- NOTE | 2018-09-09 19:08 | NUR ---
Patient came from the ICU this afternoon. Oriented to room/call light and plan of care. She had c/o nausea. Recieved Zofran. Insulin given as per orders. No other needs at this time. IV fluids continue to infuse as per orders
[2018-09-10 03:50] VITALS: BP 126/81; PULSE 78; TEMP 98.1
--- NOTE | 2018-09-10 05:48 | NUR ---
PT HAD UNEVENTFUL NOC. ADMINISTERED INSULIN NEEDED PER S/S ORDERS AND ACCU CHECKS Q4. PT NEEDED ZOFRAN AT HS FOR C/O NAUSEA. NO OTHER ISSUES OR CONSERNS VOICED.
[2018-09-10 07:00] VITALS: BP 112/38; PULSE 75; TEMP 98
--- NOTE | 2018-09-10 09:38 | NUR ---
Initial visit; Patient thanked [employer] Operator for looking in on her and offering God's blessings.
--- NOTE | 2018-09-10 09:43 | NUR ---
Assessment complete and charted. Patient A&O, reporting nausea, Zofran IV given. VS WNL. Denies pain and discomfort. IV CDI, fluids infusing. No further needs expressed from patient. Call light within reach
[2018-09-10 11:53] VITALS: BP 109/44; PULSE 72; TEMP 98.8
[2018-09-10] MEDS ORDERED: GLUCAGON EMERGEN1 M1 SQ (13:09)
--- NOTE | 2018-09-10 16:28 | NUR ---
Discharge paperwork removed with patient. Patient verbalized an understanding of following up with doctors orders, taking scheduled meds and going to follow up appointments. IV removed, tip intact, patient tolerated well, bandaid applied. Patient getting dressed and waiting for ride. No further needs expressed from patient. Call light within reach
--- NOTE | 2018-09-10 17:00 | NUR ---
Patient transfered independently outside. Personal belongings and discharge paperwork with patient. No further needs expressed from patient.
--- NOTE | 2018-09-11 18:24 | NUR ---
Call placed to patient and message left to slat pickler script here at the nurses station that was left behind yesterday.
== END 2018-09-10 17:00 | disposition home or self-care (01) | DRG 833 ==
LOC: IMCU 00:36 → MEDICAL 01:05 → ICU 01:05 → MEDICAL 14:23
PROVIDERS: Nurse Practitioner; ADMIT Family Medicine
DX: O9A.211 Injury, poisoning and certain other consequences of external causes complicating pregnancy, first trimester (principal); T38.3X4A Poisoning by insulin and oral hypoglycemic [antidiabetic] drugs, undetermined, initial encounter; E10.649 Type 1 diabetes mellitus with hypoglycemia without coma; Z3A.01 Less than 8 weeks gestation of pregnancy; F15.10 Other stimulant abuse, uncomplicated; O99.331 Smoking (tobacco) complicating pregnancy, first trimester
CPT/HCPCS: 99222-AI; 99239; J1815; J2405; J7030

== ENCOUNTER 2018-10-20 13:51 | Emergency (ER) | payer MEDICAID ==
[~2018-10-20] VITALS: Ht 157.5 cm; Wt 75.0 kg
[~2018-10-20 13:51] MED LIST changes: +GLUCAGON EMERGEN1 M1 SQ; +PROAIR HFA0.09 MG/AC IH; +RITALIN 20M20 MG/TAB PO; +ZOVIRAX400 MG PO
[2018-10-20 15:28] LABS: BASO % 0.4 % (0.0-2.0); EOS # 0.1 (0.0-0.7); EOS % 1.2 % (0-4.0); GRAN # 8.4 (1.4-6.5); GRAN % 75.1 % (42.2-75.2); HEMOGLOBIN 11.3 g/dl (12.5-16.0); LYMPH # 1.9 (1.2-3.4); LYMPH % 17.1 % (20.0-51.0); MEAN CELL VOLUME 92 fl (80.0-100.0); MEAN CORPUSCULAR HEMOGLOBIN 30 pg (27.0-31.0); MEAN CORPUSCULAR HGB CONC 33 g/dl (33.0-37.0); MEAN PLATELET VOLUME 9.9 fl (7.4-10.4); MONO # 0.6 (0.1-0.6); MONO % 5.8 % (1.7-9.3); PLATELET COUNT 243 K/mm3 (130-400); RED BLOOD COUNT 3.75 M/mm3 (4.10-5.30); REDCELL DISTRIBUTION WIDTH-CV 14.1 % (11.5-14.5)
[2018-10-20 15:37] LABS: CALCIUM 9.3 mg/dL (8.4-10.2); CREATININE, serum 0.46 (0.52-1.25); POTASSIUM 3.8 mmol/L (3.4-5.0)
[2018-10-20 15:39] LABS: HEMATOCRIT 34.3 % (37.0-47.0)
[2018-10-20 18:12] VITALS: BP 127/80; PULSE 70; TEMP 98
== END 2018-10-20 18:12 | disposition home or self-care (01) ==
LOC: COL.ER 13:51
PROVIDERS: Emergency Medicine
DX: O03.9 Complete or unspecified spontaneous abortion without complication (principal); E10.9 Type 1 diabetes mellitus without complications; F17.210 Nicotine dependence, cigarettes, uncomplicated; Z90.89 Acquired absence of other organs
CPT/HCPCS: J7030

== ENCOUNTER 2019-03-29 08:45 | Emergency (ER) | payer MEDICAID ==
[~2019-03-29] VITALS: Ht 157.5 cm; Wt 72.7 kg
[2019-03-29 09:07] VITALS: BP 129/84; TEMP 98.4
[2019-03-29 11:01] LABS: BASO % 0.6 % (0.0-2.0); EOS # 0.2 (0.0-0.7); EOS % 3.5 % (0-4.0); GRAN # 3.5 (1.4-6.5); GRAN % 55.3 % (42.2-75.2); HEMATOCRIT 38.5 % (37.0-47.0); HEMOGLOBIN 12.8 g/dl (12.5-16.0); LYMPH # 2.1 (1.2-3.4); MEAN CELL VOLUME 91 fl (80.0-100.0); MEAN CORPUSCULAR HEMOGLOBIN 30 pg (27.0-31.0); MEAN CORPUSCULAR HGB CONC 33 g/dl (33.0-37.0); MEAN PLATELET VOLUME 10.9 fl (7.4-10.4); MONO # 0.5 (0.1-0.6); MONO % 7.4 % (1.7-9.3); PLATELET COUNT 246 K/mm3 (130-400); RED BLOOD COUNT 4.22 M/mm3 (4.10-5.30); REDCELL DISTRIBUTION WIDTH-CV 13.2 % (11.5-14.5)
[2019-03-29 11:10] LABS: ACETONE,SERUM NEGATIVE
[2019-03-29 11:11] LABS: ALANINE AMINOTRANSFERASE 16 U/L (9-52); ALBUMIN 4.2 gm/dL (3.5-5.0); ALKALINE PHOSPHATASE 69 U/L (50-136); ANION GAP 9 mmol/L (7-16); AST,SGOT 24 U/L (15-37); BILIRUBIN,TOTAL 0.6 mg/dL (0.0-1.0); BLOOD UREA NITROGEN 4 mg/dL (7-17); C-REACTIVE PROTEIN 1.3 mg/dL (0.0-0.9); CALCIUM 9.3 mg/dL (8.4-10.2); CARBON DIOXIDE 22 mmol/L (22-30); CHLORIDE 106 mmol/L (98-107); CREATININE, serum 0.52 (0.52-1.25); GLUCOSE 116 mg/dL (74-106); SODIUM 137 mmol/L (137-145); TOTAL PROTEIN 7.2 gm/dL (6.4-8.2)
[2019-03-29 11:31] VITALS: PULSE 69
== END 2019-03-29 11:31 | disposition home or self-care (01) ==
LOC: COL.ER 08:45
PROVIDERS: Physician Assistant
DX: L02.31 Cutaneous abscess of buttock (principal); E10.9 Type 1 diabetes mellitus without complications
CPT/HCPCS: J7030

== ENCOUNTER 2020-07-01 21:17 | Emergency (ER) | payer MEDICAID ==
[~2020-07-01] VITALS: Ht 157.5 cm; Wt 63.6 kg
[2020-07-01 21:24] VITALS: TEMP 97.7
[2020-07-02] MEDS ORDERED: TYLENOL 325MG325 MG PO (00:15)
[2020-07-02] MEDS ORDERED: ROXICODONE 55 MG/TAB PO (00:15)
[2020-07-02 00:38] VITALS: BP 120/80; PULSE 78
== END 2020-07-02 00:38 | disposition home or self-care (01) ==
LOC: COL.ER 21:17
DX: S52.501A Unspecified fracture of the lower end of right radius, initial encounter for closed fracture (principal); S52.601A Unspecified fracture of lower end of right ulna, initial encounter for closed fracture; E11.9 Type 2 diabetes mellitus without complications; Z79.4 Long term (current) use of insulin; W19.XXXA Unspecified fall, initial encounter

== ENCOUNTER 2022-02-08 08:43 | Inpatient (IN) | payer MEDICAID ==
[~2022-02-08] VITALS: Ht 160 cm; Wt 92.3 kg
[~2022-02-08 08:43] MED LIST changes: +ROXICODONE 55 MG/TAB PO; +TYLENOL 325MG325 MG PO
[2022-02-15] VITALS (16 sets, daily range): BP systolic 116–154; BP diastolic 65–93; PULSE 58–98; TEMP 97.7–98.2
[2022-02-15] MEDS ORDERED: ZOVIRAX400 MG PO (11:35)
[2022-02-15 12:13] LABS: HEMOGLOBIN 11.7 g/dl (12.5-16.0); MEAN CELL VOLUME 94 fl (80.0-100.0); MEAN CORPUSCULAR HEMOGLOBIN 32 pg (27-31); MEAN CORPUSCULAR HGB CONC 34 g/dl (33.0-37.0); MEAN PLATELET VOLUME 10.8 fl (7.4-10.4); PLATELET COUNT 192 K/mm3 (130-400); RED BLOOD COUNT 3.64 M/mm3 (4.10-5.30); REDCELL DISTRIBUTION WIDTH-CV 13.6 % (11.5-14.5)
[2022-02-15 12:18] LABS: HEMATOCRIT 34.1 % (37.0-47.0)
[2022-02-15 12:27] LABS: TRICYCLIC ANTIDEPRESS URINE NEGATIVE
[2022-02-15 12:52] LABS: BAND 8 % (0-10); LYMPHOCYTE 22 % (20.0-51.0); METAMYELOCYTE 1 % (0-0); NEUTROPHILS 63 % (42.0-75.2); PLATELET ESTIMATE NORMAL (NORMAL)
--- NOTE | 2022-02-15 20:56 | NUR ---
PT'S LEGS ARE STILL NUMBER FROM ANESTHESIA SO SHE IS NOT ABLE TO GET UP OUT OF BED AT THIS TIME. WILL TRY AGAIN IN A FEW HOURS. NO COMPLAINTS AT THIS TIME. PT IS DRESSING THE BABY AND HOLDING HIM.
[2022-02-16 04:10] VITALS: BP 136/80; PULSE 75; TEMP 98
[2022-02-16 08:18] VITALS: BP 98/49; PULSE 65; TEMP 97.7
[2022-02-16 12:58] VITALS: BP 123/71; PULSE 88
[2022-02-16 17:06] VITALS: BP 126/98; PULSE 86; TEMP 97.9
[2022-02-16 20:30] VITALS: BP 117/59; PULSE 76; TEMP 98
[2022-02-17 08:00] VITALS: BP 132/78; PULSE 65; TEMP 97.3
[2022-02-17] MEDS ORDERED: PERCOCET 325 MG1 TA2 PO (09:31)
[2022-02-17] MEDS ORDERED: MOTRIN 800800 MG/TAB PO (09:31)
--- NOTE | 2022-02-17 14:23 | NUR ---
EDUCATED MOTHER ABOUT FEEDING ON BOTH BREASTS AT EACH FEEDING. HAVING DIFFICULTY LATCHING AT THIS TIME MOTHER DIDN'T WANT TO SWITCH . OFFERED TO SET UP BREAST PUMP FOR MOTHER TO PUMP ON BREAST INFANT DID NOT NURSE FROM. MOTHER DECLINED SHE HAS HER PUMP HERE AND WILL USE IT.
[2022-02-17 16:41] VITALS: BP 144/77; PULSE 73; TEMP 97.9
[2022-02-17 20:19] VITALS: BP 140/85; PULSE 71; TEMP 97.5
[2022-02-18 07:30] VITALS: BP 128/69; PULSE 76; TEMP 98.2
--- NOTE | 2022-02-18 07:30 | NUR ---
Rests in bed, alert. Percocet 5/325 mg two given per request and as ordered.
--- NOTE | 2022-02-18 11:30 | NUR ---
Rests in bed, alert. Ibuprofen 800 mg given as ordered.
--- NOTE | 2022-02-18 14:30 | NUR ---
Rests in bed, alert. Discharge instructions given, verbalizes understanding.
== END 2022-02-18 15:10 | disposition home or self-care (01) | DRG 787 ==
LOC: OB 02-15 08:43
PROVIDERS: ADMIT Obstetrics & Gynecology
PROC: 10D00Z1 Extraction of Products of Conception, Low, Open Approach (ICD-10-PCS; principal; 2022-02-15)
DX: O34.211 Maternal care for low transverse scar from previous cesarean delivery (principal); O98.32 Other infections with a predominantly sexual mode of transmission complicating childbirth; Z3A.39 39 weeks gestation of pregnancy; Z37.0 Single live birth; O24.429 Gestational diabetes mellitus in childbirth, unspecified control; A60.00 Herpesviral infection of urogenital system, unspecified; J45.909 Unspecified asthma, uncomplicated; O99.52 Diseases of the respiratory system complicating childbirth; K21.9 Gastro-esophageal reflux disease without esophagitis; O99.62 Diseases of the digestive system complicating childbirth
CPT/HCPCS: J0690; J1100; J1885; J2370; J2405; J2590; J2765; J7120